=== PATIENT | male | born 1960 | race Caucasian/White ===

== ENCOUNTER 2017-12-31 09:03 | Day surgery (SDC) | payer BC ==
[2017-12-28 08:34] VITALS: BMI 25.0
[~2017-12-31 09:03] MED LIST: LACTATED RINGERS 1,000 ML IV SCH; LIDOCAINE 1% 20 ML VIAL (10MG/ML) FOR IV START INTRADERMA PRN
[2017-12-31 10:19] VITALS: RESP 18; TEMP 97.8
[2017-12-31] MEDS ORDERED: LACTATED RINGERS 1,000 ML IV ONE (10:27)
[2017-12-31] MEDS ORDERED: PROPOFOL 10 MG/ML 20 ML VIAL IV ONE (10:30)
[2017-12-31 10:32] LABS: Glucose,Whole Blood 79 mg/dL (75-99)
--- NOTE | 2017-12-31 10:57 | P.PCN ---
Date of Procedure: 12/31/17 Procedure(s) Performed: Procedure: Total colonoscopy. Preoperative diagnosis: Screening for neoplasia. Preoperative diagnosis: Exam within normal limits. Preparation: HalfLytely prep. Sedation: Was provided by anesthesia. Brief clinical history: The patient is a 57-year-old male who is referred for this evaluation for screening for neoplasia. There is no family history of colon cancer. The patient has no abdominal complaints, bleeding or anemia. His first colonoscopy was more than 10 years ago. Procedure: With the patient on his left lateral decubitus position and after informed consent and adequate sedation, the perianal area was inspected and it did not show any fissures or fistulas. There were no masses felt on digital rectal examination. The Olympus CFQ 160L video colonoscope was then inserted in the rectum in the usual fashion and advanced to the cecum. The mucosa appeared healthy. No polyps or tumors were seen or any obvious diverticular disease or other pathology. I retroflexed the endoscope in the rectum before the endoscope was withdrawn. The patient tolerated the procedure well. Plan: The patient was reassured. He will follow up with you as planned and I recommended repeat exam in 10 years.
[2017-12-31 11:34] VITALS: BP 100/63; PULSE 56
== END 2017-12-31 11:46 | disposition home or self-care (01) ==
LOC: ORWHC2ENDO 09:03
DX: Z12.11 Encounter for screening for malignant neoplasm of colon (principal); I25.10 Atherosclerotic heart disease of native coronary artery without angina pectoris; J44.9 Chronic obstructive pulmonary disease, unspecified; I10 Essential (primary) hypertension; E78.5 Hyperlipidemia, unspecified; E88.01 Alpha-1-antitrypsin deficiency; Z95.5 Presence of coronary angioplasty implant and graft; Z79.82 Long term (current) use of aspirin; Z79.51 Long term (current) use of inhaled steroids; Z79.899 Other long term (current) drug therapy
CPT/HCPCS: J2704; G0121; 45378

== ENCOUNTER 2019-08-24 20:14 | Inpatient (IN) | payer BC, MEDICARE ==
[2019-08-24] MEDS ORDERED: ALBUTEROL NEBULIZED 2.5 MG/3 ML INHALATION STA (20:29)
[2019-08-24] MEDS ORDERED: IPRATROPIUM 0.5 MG/2.5 ML NEBU INHALATION STA (20:29)
[2019-08-24] MEDS ORDERED: methylPREDNISolone SOD SUCCI 125 MG/2 ML VIAL IV STA (20:29)
--- NOTE | 2019-08-24 20:44 | ED ---
General Adult HPI - General Chief complaint: Shortness of Breath Stated complaint: SOB Time Seen by Provider: 08/24/19 20:15 Source: patient, family, RN notes reviewed, old records reviewed Mode of arrival: ambulatory Limitations: no limitations - History of Present Illness Initial comments: This is a 59-year-old male who presents emergency Department complaining of difficulty breathing. Patient has a past medical history significant for COPD. Patient states he took some breathing treatments at home today but they did not help. Patient stated his breathing got considerably worse. Patient also has noticed some slight chest pressure today. Patient states he has a history of heart attack with stent placement. Patient states this is nowhere near the kind of pain he had his chest when his heart attack. Patient denies any fever or chills. Patient states he doesn't cough but no sputum production. Patient denies any lightheadedness or dizziness. Patient denies any headache patient denies numbness weakness. Patient denies any abdominal pain. Patient denies nausea vomiting. She denies any swelling to the legs or calf tenderness. - Related Data Home Medications Medication Instructions Recorded Confirmed Aspirin [Adult Low Dose Aspirin EC] 81 mg PO DAILY 12/28/17 07/26/18 Atorvastatin [Lipitor] 80 mg PO DAILY 12/28/17 07/26/18 Fluticasone/Salmeterol [Advair 1 each IH DAILY 12/28/17 07/26/18 500-50 Diskus] Ipratropium-Albuterol Nebulize 3 ml INHALATION QID 12/28/17 07/26/18 [Duoneb 0.5 mg-3 mg/3 ml Soln] Ipratropium/Albuterol Sulfate 1 - 2 puff INHALATION QID PRN 12/28/17 07/26/18 [Combivent Respimat Inhaler] Lisinopril [Zestril] 5 mg PO DAILY 12/28/17 07/26/18 Theophylline 12 Hour [Dae-Dur] 300 mg PO DAILY 12/28/17 07/26/18 predniSONE 2.5 mg PO DAILY 12/28/17 07/26/18 Allergies Allergy/AdvReac Type Severity Reaction Status Date / Time No Known Allergies Allergy Verified 08/24/19 20:19 Review of Systems ROS Statement: Those systems with pertinent positive or pertinent negative responses have been documented in the HPI. ROS Other: All systems not noted in ROS Statement are negative. Past Medical History Past Medical History: Coronary Artery Disease (CAD), COPD, Hypertension, Myocardial Infarction ([place]) Additional Past Medical History / Comment(s): alpha 1 deficiency Last Myocardial Infarction Date:: 2008 History of Any Multi-Drug Resistant Organisms: None Reported Past Surgical History: Heart Catheterization With Stent Additional Past Surgical History / Comment(s): COLONOSCOPY Past Anesthesia/Blood Transfusion Reactions: No Reported Reaction Date of Last Stent Placement:: 2008 Past Psychological History: No Psychological Hx Reported Smoking Status: Former smoker Past Alcohol Use History: None Reported Past Drug Use History: None Reported - Past Family History Mother Family Medical History: No Reported History General Exam - General Exam Comments Initial Comments: GENERAL: Patient is well-developed and well-nourished. Patient is nontoxic and well- hydrated and is in mild distress. ENT: Neck is soft and supple. No significant lymphadenopathy is noted. Oropharynx is clear. Moist mucous membranes. Neck has full range of motion without eliciting any pain. EYES: The sclera were anicteric and conjunctiva were pink and moist. Extraocular movements were intact and pupils were equal round and reactive to light. Eyelids were unremarkable. PULMONARY: Patient has diminished breath sounds throughout and expiratory wheezing. CARDIOVASCULAR: There is a regular rate and rhythm without any murmurs gallops or rubs. ABDOMEN: Soft and nontender with normal bowel sounds. SKIN: Skin is clear with no lesions or rashes and otherwise unremarkable. NEUROLOGIC: Patient is alert and oriented x3. Cranial nerves II through XII are grossly intact. Motor and sensory are also intact. Normal speech, volume and content. Symmetrical smile. MUSCULOSKELETAL: Normal extremities with adequate strength and full range of motion. LYMPHATICS: No significant lymphadenopathy is noted PSYCHIATRIC: Normal psychiatric evaluation. Limitations: no limitations Course Vital Signs 08/24/19 08/24/19 08/24/19 20:16 20:45 20:54 Temperature 98.2 F Pulse Rate 85 86 Respiratory 32 H 26 H Rate Blood Pressure 135/82 O2 Sat by Pulse 94 L Oximetry 08/24/19 08/24/19 21:15 21:34 Temperature Pulse Rate 82 80 Respiratory Rate Blood Pressure O2 Sat by Pulse Oximetry Medical Decision Making - Medical Decision Making EKG shows sinus rhythm with occasional PVC at 77 bpm WA interval is on a 34 King 96 QT interval 352 QTC is 398. Patient's EKG shows no ST segment elevation or depression. Chest x-ray shows no acute abnormality. Patient got 3 breathing treatments in the emergency department as well as some steroids. I went back in and reevaluated the patient he sounded considerably better but nowhere near his baseline he stated. I spoke with Dr. Dominguez he agreed to admit the patient admitted the patient I wrot e admitting orders. - Lab Data Result diagrams: 08/24/19 20:45 08/24/19 20:45 Lab Results 08/24/19 08/24/19 08/24/19 Range/Units 20:45 20:45 20:45 WBC 7.2 (3.8-10.6) k/uL RBC 4.66 (4.30-5.90) m/uL Hgb 13.7 (13.0-17.5) gm/dL Hct 41.6 (39.0-53.0) % MCV 89.2 (80.0-100.0) fL MCH 29.3 (25.0-35.0) pg MCHC 32.8 (31.0-37.0) g/dL RDW 13.7 (11.5-15.5) % Plt Count 268 (150-450) k/uL Neutrophils % 62 % Lymphocytes % 27 % Monocytes % 5 % Eosinophils % 2 % Basophils % 1 % Neutrophils # 4.5 (1.3-7.7) k/uL Lymphocytes # 2.0 (1.0-4.8) k/uL Monocytes # 0.4 (0-1.0) k/uL Eosinophils # 0.2 (0-0.7) k/uL Basophils # 0.0 (0-0.2) k/uL PT 9.8 (9.0-12.0) sec INR 0.9 (<1.2) APTT 23.8 (22.0-30.0) sec Sodium 139 (137-145) mmol/L Potassium 5.5 H (3.5-5.1) mmol/L Chloride 106 (98-107) mmol/L Carbon Dioxide 25 (22-30) mmol/L Anion Gap 8 mmol/L BUN 16 (9-20) mg/dL Creatinine 1.03 (0.66-1.25) mg/dL Est GFR (CKD-EPI)AfAm >90 (>60 ml/min/1.73 sqM) Est GFR (CKD-EPI)NonAf 78 (>60 ml/min/1.73 sqM) Glucose 90 (74-99) mg/dL Calcium 8.9 (8.4-10.2) mg/dL Magnesium 2.1 (1.6-2.3) mg/dL Total Bilirubin 1.0 (0.2-1.3) mg/dL AST 42 (17-59) U/L ALT 16 L (21-72) U/L Alkaline Phosphatase 89 (38-126) U/L Troponin I (0.000-0.034) ng/mL Total Protein 7.3 (6.3-8.2) g/dL Albumin 4.1 (3.5-5.0) g/dL 08/24/19 Range/Units 20:45 WBC (3.8-10.6) k/uL RBC (4.30-5.90) m/uL Hgb (13.0-17.5) gm/dL Hct (39.0-53.0) % MCV (80.0-100.0) fL MCH (25.0-35.0) pg MCHC (31.0-37.0) g/dL RDW (11.5-15.5) % Plt Count (150-450) k/uL Neutrophils % % Lymphocytes % % Monocytes % % Eosinophils % % Basophils % % Neutrophils # (1.3-7.7) k/uL Lymphocytes # (1.0-4.8) k/uL Monocytes # (0-1.0) k/uL Eosinophils # (0-0.7) k/uL Basophils # (0-0.2) k/uL PT (9.0-12.0) sec INR (<1.2) APTT (22.0-30.0) sec Sodium (137-145) mmol/L Potassium (3.5-5.1) mmol/L Chloride (98-107) mmol/L Carbon Dioxide (22-30) mmol/L Anion Gap mmol/L BUN (9-20) mg/dL Creatinine (0.66-1.25) mg/dL Est GFR (CKD-EPI)AfAm (>60 ml/min/1.73 sqM) Est GFR (CKD-EPI)NonAf (>60 ml/min/1.73 sqM) Glucose (74-99) mg/dL Calcium (8.4-10.2) mg/dL Magnesium (1.6-2.3) mg/dL Total Bilirubin (0.2-1.3) mg/dL AST (17-59) U/L ALT (21-72) U/L Alkaline Phosphatase (38-126) U/L Troponin I <0.012 (0.000-0.034) ng/mL Total Protein (6.3-8.2) g/dL Albumin (3.5-5.0) g/dL Critical Care Time Critical Care Time: Yes Total Critical Care Time: 35 Disposition Clinical Impression: Acute exacerbation of chronic obstructive pulmonary disease Disposition: ADMITTED IP TO THIS HOSP Referrals: Everett Lara DO [Primary Care Provider] - 1-2 days Time of Disposition: 22:07
[2019-08-24 21:00] LABS: Basophils % (A) 1 %; Eosinophils # (A) 0.2 k/uL (0-0.7); Eosinophils % (A) 2 %; HCT 41.6 % (39.0-53.0); HGB 13.7 gm/dL (13.0-17.5); Lymphocytes % (A) 27 %; MCH 29.3 pg (25.0-35.0); MCHC 32.8 g/dL (31.0-37.0); MCV 89.2 fL (80.0-100.0); Mean Platelet Volume 6.4; Monocytes # (A) 0.4 k/uL (0-1.0); Monocytes % (A) 5 %; Neutrophils # (A) 4.5 k/uL (1.3-7.7); Neutrophils % (A) 62 %; Platelet Count 268 k/uL (150-450); RBC 4.66 m/uL (4.30-5.90); RDW 13.7 % (11.5-15.5); WBC 7.2 k/uL (3.8-10.6)
[2019-08-24 21:04] LABS: ALT 16 U/L (21-72); AST 42 U/L (17-59); African American GFR (CKD) >90 (>60 ml/min/1.73 sqM); Albumin 4.1 g/dL (3.5-5.0); Alkaline Phosphatase 89 U/L (38-126); Anion Gap 8 mmol/L; Blood Urea Nitrogen 16 mg/dL (9-20); Calcium 8.9 mg/dL (8.4-10.2); Carbon Dioxide 25 mmol/L (22-30); Chloride 106 mmol/L (98-107); Glucose 90 mg/dL (74-99); Magnesium 2.1 mg/dL (1.6-2.3); Non-African American GFR(CKD) 78 (>60 ml/min/1.73 sqM); Sodium 139 mmol/L (137-145); Total Protein 7.3 g/dL (6.3-8.2)
[2019-08-24 21:06] LABS: Potassium 5.5 mmol/L (3.5-5.1)
[2019-08-24 21:14] LABS: INR 0.9 (<1.2); Partial Thromboplastin Time 23.8 sec (22.0-30.0); Prothrombin Time 9.8 sec (9.0-12.0)
[2019-08-24] MEDS ORDERED: IPRATROPIUM-ALBUTEROL 3 ML NEB INHALATION PRN (21:22)
--- NOTE | 2019-08-24 21:45 | XR ---
EXAMINATION TYPE: XR chest 2V DATE OF EXAM: 08/24/2019 COMPARISON: Chest x-ray 06/26/2019 HISTORY: Difficulty breathing TECHNIQUE: Frontal and lateral views of the chest are obtained. FINDINGS: Stable, nonenlarged cardiac silhouette. Rounded right lower lung opacity is new from Octob er 2019 and may represent overlapping soft tissues. No focal airspace consolidation. Prominent inters titial markings, likely from emphysematous change. No pleural effusion or pneumothorax. Old, healed r ight-sided rib fracture redemonstrated. IMPRESSION: No acute cardiopulmonary process.
[2019-08-24] MEDS ORDERED: LEVOFLOXACIN 750MG-D5W PMX 750 MG in DEXTROSE/WATER 1 150ML.BAG IVPB STA (22:11)
[2019-08-25] MEDS: methylPREDNISolone SOD SUCCI 125 MG/2 ML VIAL IV SCH ×3 (00:04→14:33)
[2019-08-25] MEDS: IPRATROPIUM-ALBUTEROL 3 ML NEB INHALATION PRN ×5 (04:27→19:33)
[2019-08-25 08:40] VITALS: RESP 18
[2019-08-25 12:42] LABS: Glucose,Whole Blood 204 mg/dL (75-99)
--- NOTE | 2019-08-25 15:38 | P.HPIM ---
History of Present Illness Patient is a pleasant 59-year-old gentleman with a history of smoking quit years ago and alpha 1 antitrypsin Deficiency Known History of COPD Doesn't Use Any Oxygen Came in with Compensative Shortness of Breath and Cough Has Been Going on for 3 Days If Patient Is Unable to Bring up Anything Patient Chest X-Ray Did Not Show Pneumonia Patient Doesn't Have Any Fever Chills. Patient was started on systemic steroids which will be continued and patient shortness of breath significantly improved with steroids episode and inhalational treatments received in ER. We'll cut down the steroids to 40 twice a day and if he is doing well patient will be discharged tomorrow. Patient is presently in status of oxygen which we will taper down to no oxygen by tomorrow. Patient denied any flulike symptoms. Review of Systems REVIEW OF SYSTEMS: CONSTITUTIONAL: No fever, no malaise, no fatigue. HEENT: No recent visual problems or hearing problems. Denied any sore throat. CARDIOVASCULAR: No chest pain, orthopnea, PND, no palpitations, no syncope. PULMONARY: no hemoptysis. GASTROINTESTINAL: No diarrhea, no nausea, no vomiting, no abdominal pain. NEUROLOGICAL: No headaches, no weakness, no numbness. HEMATOLOGICAL: Denies any bleeding or petechiae. GENITOURINARY: Denies any burning micturition, frequency, or urgency. MUSCULOSKELETAL/RHEUMATOLOGICAL: Denies any joint pain, swelling, or any muscle pain. ENDOCRINE: Denies any polyuria or polydipsia. The rest of the 14-point review of systems is negative. Past Medical History Past Medical History: Asthma, Coronary Artery Disease (CAD), COPD, GERD/Reflux, Hyperlipidemia, Hypertension, Myocardial Infarction ([place]), Prostate Disorder Additional Past Medical History / Comment(s): Alpha 1 deficiency with weekly infusions, bronchitis, BPH, N/T R hand, tendonitis R arm, mid back pain associated with increased respiratory effort. Last Myocardial Infarction Date:: 2010 History of Any Multi-Drug Resistant Organisms: None Reported Past Surgical History: Heart Catheterization With Stent Additional Past Surgical History / Comment(s): 2 stents to RCA in 2010, COLONOSCOPY Past Anesthesia/Blood Transfusion Reactions: No Reported Reaction Date of Last Stent Placement:: 2010 Smoking Status: Former smoker - Past Family History Mother Family Medical History: Pneumonia Additional Family Medical History / Comment(s): Mother of pneumonia at the age of 56 or 57yrs. Father Family Medical History: Coronary Artery Disease (CAD) Additional Family Medical History / Comment(s): Father was an alcoholic. He at the age of 58yrs. Medications and Allergies Home Medications Medication Instructions Recorded Confirmed Type Aspirin [Adult Low Dose Aspirin EC] 81 mg PO DAILY 12/28/17 08/25/19 History Atorvastatin [Lipitor] 80 mg PO DAILY 12/28/17 08/25/19 History Fluticasone/Salmeterol [Advair 1 puff INHALATION RT-DAILY 12/28/17 08/25/19 History 500-50 Diskus] Ipratropium-Albuterol Nebulize 3 ml INHALATION RT-QID 12/28/17 08/25/19 History [Duoneb 0.5 mg-3 mg/3 ml Soln] Ipratropium/Albuterol Sulfate 1 puff INHALATION RT-QID PRN 12/28/17 08/25/19 History [Combivent Respimat Inhaler] Theophylline 12 Hour [Dae-Dur] 300 mg PO DAILY 12/28/17 08/25/19 History predniSONE 2.5 mg PO DAILY 12/28/17 08/25/19 History Lisinopril [Zestril] 2.5 mg PO DAILY 08/25/19 08/25/19 History Allergies Allergy/AdvReac Type Severity Reaction Status Date / Time No Known Allergies Allergy Verified 08/25/19 07:43 Physical Exam Vitals: Vital Signs Temp Pulse Pulse Resp BP BP Pulse Ox 08/25/19 15:21 70 08/25/19 15:08 77 97 08/25/19 14:29 97.9 F 63 18 116/76 98 08/25/19 12:50 67 08/25/19 12:35 66 08/25/19 08:00 97.6 F 84 18 99/64 97 08/25/19 07:51 61 08/25/19 07:41 67 08/25/19 04:38 100 08/25/19 04:29 98 08/25/19 04:28 99.1 F 100 20 100/77 97 08/25/19 01:00 95 22 122/88 97 08/24/19 21:34 80 08/24/19 21:15 82 08/24/19 20:54 26 H 08/24/19 20:45 86 08/24/19 20:16 98.2 F 85 32 H 135/82 94 L Intake and Output 08/25/19 08/25/19 08/25/19 06:59 14:59 22:59 Other: # Voids 2 Weight 80.286 kg PHYSICAL EXAMINATION: GENERAL: The patient is alert and oriented x3, not in any acute distress. Well developed, well nourished. HEENT: Pupils are round and equally reacting to light. EOMI. No scleral icterus. No conjunctival pallor. Normocephalic, atraumatic. No pharyngeal erythema. No thyromegaly. CARDIOVASCULAR: S1 and S2 present. No murmurs, rubs, or gallops. PULMONARY: Mildly decreased air entry into bilateral lung moreau no wheezing or crackles. ABDOMEN: Soft, nontender, nondistended, normoactive bowel sounds. No palpable organomegaly. MUSCULOSKELETAL: No joint swelling or deformity. EXTREMITIES: No cyanosis, clubbing, or pedal edema. NEUROLOGICAL: Gross neurological examination did not reveal any focal deficits. SKIN: No rashes. Results CBC & Chem 7: 08/24/19 20:45 08/24/19 20:45 Labs: Abnormal Lab Results - Last 24 Hours (Table) 08/24/19 08/25/19 Range/Units 20:45 12:40 Potassium 5.5 H (3.5-5.1) mmol/L POC Glucose (mg/dL) 204 H (75-99) mg/dL ALT 16 L (21-72) U/L Thrombosis Risk Factor Assmnt - Choose All That Apply Any of the Below Risk Factors Present?: Yes Each Factor Represents 1 point: Abnormal pulmonary function (COPD) Other Risk Factors: Yes Each Risk Factor Represents 2 Points: Age 61-74 years Other congenital or acquired thrombophilia - If yes, enter type in comment: No Thrombosis Risk Factor Assessment Total Risk Factor Score: 3 Thrombosis Risk Factor Assessment Level: Moderate Risk Assessment and Plan Plan: -Acute hypercapnic respiratory failure secondary to COPD exacerbation continue systemic steroids inhalational treatments pulmonary was consulted patient does have history of alpha 1 antitrypsin deficiency. The patient is clinically doing well probably can be discharged tomorrow -Hyperkalemia: Secondary to hemolysis although patient did blood pressure is low normal because of which I'll hold off on lisinopril anyway. We'll repeat potassium levels tomorrow -Gastric reflux disease -Hyperlipidemia -Coronary artery disease -Benign prostatic appropriate -Hypertension For all the above-mentioned chronic medical problems patient will be resumed on appropriate home medications. -DVT prophylaxis early ambulation GI prophylaxis Pepcid
--- NOTE | 2019-08-25 17:22 | CONS ---
CONSULTATION PULMONARY/CRITICAL CARE CONSULTATION: DATE OF CONSULTATION: August 25, 2019 REASON FOR CONSULTATION: Shortness of breath. HISTORY OF PRESENT ILLNESS: This is a very pleasant 59-year-old male who I believe sees Dr. Lara as a primary and sees my partner Dr. Ardon for his COPD. He presents to the emergency room with complaints of a couple days worth of increasing and profound shortness of breath. The patient was taking his breathing treatments, which did not help. He felt very tight in his chest and could not get a breath in. He also had some slight chest pressure. For that reason, the patient was seen in the emergency room and admitted to the hospital. We actually saw the patient in the emergency room because there was no bed available for him. He was in the observation area in the emergency room. The patient denied any fever or chills. Does not cough up much or any phlegm. No lightheadedness or dizziness. No fever or chills. No nausea, vomiting or diarrhea. No genitourinary complaints. The patient does apparently have a history of alpha 1 antitrypsin deficiency, emphysema and is currently on replacement therapy with Prolastin. Again, his technology intern is Dr. Ardon. The patient is feeling better. He has been in the hospital for less than a day. He states his breathing is improved somewhat. CURRENT MEDICATIONS: Include aspirin, Lipitor, Advair, DuoNeb, Combivent, lisinopril, theophylline, prednisone and replacement therapy for his alpha-1 disease, Prolastin. ALLERGIES: Denied. MEDICAL HISTORY: CAD, COPD, hypertension, myocardial infarction, and alpha-1 antitrypsin deficiency. His last [place] was in 2008. SURGICAL HISTORY: Includes a previous heart catheterization with stent and as well a colonoscopy. SOCIAL HISTORY: Negative for tobacco or alcohol. He is a former smoker. He did smoke heavily for a number of years. FAMILY HISTORY: Positive for a mother who is healthy and a father whose health history he does not know. REVIEW OF SYSTEMS: CONSTITUTIONAL negative. NEUROLOGIC negative. HEENT negative. CARDIOVASCULAR: Chest tightness. PULMONARY: Shortness of breath, chest tightness, wheezing, cough without phlegm production. GI negative. negative. RHEUMATOLOGIC negative. IMMUNOLOGIC negative. ENDOCRINOLOGIC negative. DERMATOLOGIC negative. PHYSICAL EXAMINATION: VITAL SIGNS: Current vital signs are reviewed. Temperature 97.6. Heart rate 67, respiratory rate 18, blood pressure 99/64, mean 75 and 3 L saturation 97%. GENERAL: Appears in no acute distress. HEENT examination is grossly unremarkable. He does have nasal O2 in place. NECK: Supple. Full range of motion. No adenopathy or thyromegaly. Neck veins are flat. CARDIOVASCULAR examination reveals regular rhythm and rate. S1, S2 normal. No S3, S4, or murmur. LUNGS: Reveal severely diminished breath sounds. Some high-pitched expiratory wheezes are noted. There is prolongation on forced maneuver. ABDOMEN: Soft. Bowel sounds are heard. EXTREMITIES are intact. No cyanosis, clubbing, or edema. SKIN: Without rash. NEUROLOGIC: Examination is brief but nonfocal. CURRENT LAB DATA: Reviewed. White count 7.2, hemoglobin 13.7, hematocrit 41.6, platelet count 268,000. PT/INR and PTT all normal. Sodium 139, potassium 5.5, chloride 106, CO2 is 25, anion gap is 8. BUN and creatinine were 16 and 1.03. ALT was 16. Microbiology is pending or negative. X-RAY: Chest x-ray shows no acute cardiopulmonary disease. It does show evidence of changes of COPD. Medications are reviewed. ASSESSMENT: 1. Chronic obstructive pulmonary disease exacerbation, in a patient with a history of alpha-1 antitrypsin deficiency. 2. No evidence of pneumonia on chest x-ray. 3. History of hyperlipidemia. 4. Coronary artery disease. 5. Hypertension by history. 6. Prior history of myocardial infarction 2008. 7. History of previous PCI with stent placement. 8. Prior history of tobacco use. PLAN: His chest x-ray, medications and labs are all being reviewed. He is already starting to feel better. We will make sure he is on appropriate medications. Probably just an oral antibiotics is all that is required. Additional recommendations and suggestions are forthcoming. Prognosis is guarded. MMODL / IJN: [id number] /
[2019-08-25] MEDS: SYMBICORT 160-4.5 MCG INHALER INHALATION SCH (19:34)
[2019-08-25] MEDS: methylPREDNISolone SOD SUCCI 40 MG/ML 1 ML VIAL IV SCH (20:43)
[2019-08-25] MEDS: FAMOTIDINE 20 MG TAB PO SCH (20:43)
[2019-08-25] MEDS ORDERED: LEVOFLOXACIN 750 MG TAB PO SCH (22:00)
[2019-08-25] MEDS ORDERED: LEVOFLOXACIN 750MG-D5W PMX 750 MG in DEXTROSE/WATER 1 150ML.BAG IVPB SCH (22:15)
[2019-08-26 05:01] VITALS: BP 112/70; TEMP 97.8
[2019-08-26] MEDS: IPRATROPIUM-ALBUTEROL 3 ML NEB INHALATION PRN ×2 (07:17→11:15)
[2019-08-26] MEDS: SYMBICORT 160-4.5 MCG INHALER INHALATION SCH (07:17)
[2019-08-26] MEDS: methylPREDNISolone SOD SUCCI 40 MG/ML 1 ML VIAL IV SCH (08:35)
[2019-08-26] MEDS: FAMOTIDINE 20 MG TAB PO SCH (08:35)
[2019-08-26] MEDS ORDERED: THEOPHYLLINE 24 HOUR 300 MG CAP.ER.24H PO SCH (09:00)
[2019-08-26] MEDS ORDERED: ASPIRIN 81 MG PO SCH (09:00)
[2019-08-26] MEDS ORDERED: ATORVASTATIN 80 MG TAB PO SCH (09:00)
[2019-08-26 11:28] VITALS: PULSE 84
[2019-08-26 11:47] LABS: African American GFR (CKD) >90 (>60 ml/min/1.73 sqM); Anion Gap 10 mmol/L; Blood Urea Nitrogen 24 mg/dL (9-20); Calcium 9.7 mg/dL (8.4-10.2); Carbon Dioxide 27 mmol/L (22-30); Chloride 103 mmol/L (98-107); Glucose 139 mg/dL (74-99); Non-African American GFR(CKD) 84 (>60 ml/min/1.73 sqM); Potassium 5.1 mmol/L (3.5-5.1); Sodium 140 mmol/L (137-145)
--- NOTE | 2019-08-26 13:12 | P.PN ---
Subjective Progress Note Date: 08/26/19 Principal diagnosis: Exacerbation of COPD, alpha-1 antitrypsin deficiency On 08/26/2019 patient seen in follow-up. Awake and alert, in no acute distress doing better, breathing easier, lung sounds reveal good air entry bilaterally, with only minimal wheezes, signs have been stable, no fever or chills, room air pulse ox is 94%, patient has been treated with the IV steroids, nebulized bronchodilators, and oral antibiotics. Doing well, and being considered for discharge home today. Objective - Vital Signs Vital signs: Vital Signs Temp 97.8 F 08/26/19 05:01 Pulse 84 08/26/19 11:28 Resp 18 08/26/19 05:01 BP 112/70 08/26/19 05:01 Pulse Ox 94 L 08/26/19 07:20 Intake & Output 08/25/19 08/26/19 08/26/19 18:59 06:59 18:59 Intake Total 480 900 400 Balance 480 900 400 Weight 80.286 kg Intake: Oral 480 900 400 Other: # Voids 2 2 2 # Bowel Movements 0 0 - Exam GENERAL EXAM: Alert, very pleasant, 59-year-old white male, room air pulse ox 94% comfortable in no apparent distress. HEAD: Normocephalic/atraumatic. EYES: Normal reaction of pupils, equal size. Conjunctiva pink, sclera white. NOSE: Clear with pink turbinates. THROAT: No erythema or exudates. NECK: No masses, no JVD, no thyroid enlargement, no adenopathy. CHEST: No chest wall deformity. Symmetrical expansion. LUNGS: Equal air entry with minimal wheezes, but no rhonchi or dullness. CVS: Regular rate and rhythm, normal S1 and S2, no gallops, no murmurs, no rubs ABDOMEN: Soft, nontender. No hepatosplenomegaly, normal bowel sounds, no guarding or rigidity. EXTREMITIES: No clubbing, no edema, no cyanosis, 2+ pulses and upper and lower extremities. MUSCULOSKELETAL: Muscle strength and tone normal. SPINE: No scoliosis or deformity SKIN: No rashes CENTRAL NERVOUS SYSTEM: Alert and oriented -3. No focal deficits, tone is normal in all 4 extremities. PSYCHIATRIC: Alert and oriented -3. Appropriate affect. Intact judgment and insight. - Labs CBC & Chem 7: 08/24/19 20:45 08/26/19 10:43 Labs: Abnormal Lab Results - Last 24 Hours (Table) 08/26/19 Range/Units 10:43 BUN 24 H (9-20) mg/dL Glucose 139 H (74-99) mg/dL Microbiology - Last 24 Hours (Table) 08/24/19 22:25 Blood Culture - Preliminary Blood No Growth after 24 hours Assessment and Plan Plan: Assessment: #1. Acute exacerbation of chronic obstructive pulmonary disease, with a history of alpha-1 antitrypsin deficiency #2. No definite evidence of pneumonia on the chest x-ray #3. History of hyperlipidemia #4. Coronary artery disease with previous PCI and stenting #5. Hypertension #6. History of myocardial infarction 2008 #7. Prior history of tobacco use Plan: Patient is doing well, breathing easier, less dyspneic and this bronchospastic, vital signs are stable, he is responded well to inpatient treatments, no acute events overnight, he is tolerating ambulation, patient is being discharged home today, follow-up with Dr. Phan in the office in one to 2 weeks. I performed a history & physical examination of the patient and discussed their management with my nurse practitioner, Liset Romero. I reviewed the nurse practitioner's note and agree with the documented findings and plan of care. Lung sounds are positive for a few scattered wheezes. The findings and the impression was discussed with the patient. I attest to the documentation by the nurse practitioner. Time with Patient: Less than 30
--- NOTE | 2019-08-27 06:08 | DS ---
DISCHARGE SUMMARY DATE OF ADMISSION: 08/24/2019 DATE OF DISCHARGE: 08/26/2019 FINAL DIAGNOSES: 1. Acute chronic obstructive pulmonary disease exacerbation in a patient with known history of alpha-1 antitrypsin deficiency. 2. Coronary artery disease with stent. 3. Gastroesophageal reflux disease. 4. Hyperlipidemia. 5. Essential hypertension. 6. Benign prostatic hypertrophy. CONSULTATION: Dr. Phan from Pulmonary. HOSPITAL COURSE: This is a patient with alpha-1 antitrypsin deficiency, who gets weekly injections, presented with COPD exacerbation, responded well to bronchodilators, steroids. Much improved by the time of discharge. PHYSICAL EXAMINATION: On examination, temperature 97.8, pulse 91, respiratory 18, blood pressure 112/70, pulse ox 94% on room air. LUNGS: Decreased breath sounds. CARDIOVASCULAR: First and second sounds normal. INVESTIGATIONS: Creatinine 0.98, potassium 5.1. DISCHARGE MEDICATIONS: 1. Aspirin 81 mg a day. 2. Lipitor 80 mg a day. 3. Advair 500/50 one puff daily. 4. DuoNeb q.i.d. 5. Combivent p.r.n. 6. Theophylline 300 mg p.o. daily. 7. Prednisone taper and maintenance dose of 2.5 mg daily. 8. Levaquin 750 mg daily for 3 tablets. Follow up with Dr. Ardon on 09/18/2019, follow up with Dr. Lara on 09/16/2019. MMMELLYL / IJN: [id number] /
== END 2019-08-26 12:00 | disposition home or self-care (01) | DRG 190 ==
LOC: EC 20:14 → 3SCARD 22:09 → 4MS4W 08-25 11:38
PROVIDERS: ADMIT Hospitalist; ATTEND Hospitalist
DX: J44.1 Chronic obstructive pulmonary disease with (acute) exacerbation (principal); J96.02 Acute respiratory failure with hypercapnia; E88.01 Alpha-1-antitrypsin deficiency; E87.5 Hyperkalemia; I10 Essential (primary) hypertension; E78.5 Hyperlipidemia, unspecified; I25.10 Atherosclerotic heart disease of native coronary artery without angina pectoris; I25.2 Old myocardial infarction; I49.3 Ventricular premature depolarization; K21.9 Gastro-esophageal reflux disease without esophagitis; N40.0 Benign prostatic hyperplasia without lower urinary tract symptoms; Z95.5 Presence of coronary angioplasty implant and graft; Z79.82 Long term (current) use of aspirin; Z79.899 Other long term (current) drug therapy; Z79.52 Long term (current) use of systemic steroids; Z87.891 Personal history of nicotine dependence; Z81.1 Family history of alcohol abuse and dependence; Z82.49 Family history of ischemic heart disease and other diseases of the circulatory system
CPT/HCPCS: 36415; 71046; 80048; 80053; 83735; 84484; 85025; 85610; 85730; 87040; 93005; 94640; 94644; 94760; 96365; 96366; 96375; 96376; 99291

== ENCOUNTER 2023-05-03 05:48 | Day surgery (SDC) | payer BC, MEDICARE ==
[2023-05-03] MEDS ORDERED: ALPRAZolam 0.5 MG TAB PO PRN (05:57)
[2023-05-03] MEDS ORDERED: ALPRAZolam 0.25 MG TAB PO PRN (05:57)
[2023-05-03] MEDS ORDERED: NITROGLYCERIN SL TABS 0.4 MG TAB SUBLINGUAL PRN (05:57)
[2023-05-03] MEDS ORDERED: HEPARIN SODIUM,PORCINE (1 ML) 2,500 UNIT in SODIUM CHLORIDE 0.9% 250 ML IRRIGATION PRN (05:57)
[2023-05-03] MEDS ORDERED: SODIUM CHLORIDE 0.9% 1,000 ML in EMPTY BAG 1 BAG IV SCH (05:57)
[2023-05-03] MEDS ORDERED: SODIUM CHLORIDE 0.9% 1,000 ML IV ONE (06:07)
[2023-05-03 06:26] VITALS: RESP 18; TEMP 97.8
[2023-05-03 06:40] LABS: Basophils # (A) 0.1 k/uL (0-0.2); Basophils % (A) 1 %; Eosinophils # (A) 0.4 k/uL (0-0.7); Eosinophils % (A) 4 %; Lymphocytes # (A) 3.3 k/uL (1.0-4.8); Lymphocytes % (A) 29 %; MCHC 31.9 g/dL (31.0-37.0); MCV 90.9 fL (80.0-100.0); Mean Platelet Volume 7.2; Monocytes # (A) 0.6 k/uL (0-1.0); Monocytes % (A) 6 %; Neutrophils # (A) 6.5 k/uL (1.3-7.7); Neutrophils % (A) 59 %; Platelet Count 335 k/uL (150-450); RBC 5.17 m/uL (4.30-5.90); RDW 13.8 % (11.5-15.5)
[2023-05-03 06:47] LABS: African American GFR (CKD) 83 (>60 ml/min/1.73 sqM); Anion Gap 8 mmol/L; Blood Urea Nitrogen 17 mg/dL (9-20); Calcium 9.5 mg/dL (8.4-10.2); Carbon Dioxide 26 mmol/L (22-30); Chloride 105 mmol/L (98-107); Glucose 91 mg/dL (74-99); Non-African American GFR(CKD) 72 (>60 ml/min/1.73 sqM); Potassium 4.5 mmol/L (3.5-5.1); Sodium 139 mmol/L (137-145)
[2023-05-03] MEDS ORDERED: HEPARIN SODIUM,PORCINE 10,000 UNIT in SODIUM CHLORIDE 0.9% 1,000 ML IRRIGATION PRN (07:00)
[2023-05-03] MEDS ORDERED: ATORVASTATIN 80 MG TAB PO ONE (07:00)
[2023-05-03] MEDS ORDERED: ASPIRIN 325 MG TAB PO ONE (07:00)
[2023-05-03] MEDS ORDERED: VERAPAMIL 2.5 MG/ML 2 ML AMP ONE (07:15)
[2023-05-03] MEDS ORDERED: HEPARIN SODIUM 1,000 UN/ML (10ML VL) ONE (07:32)
[2023-05-03] MEDS ORDERED: fentaNYL (PF) 50 MCG/ML 2 ML AMP ONE (07:32)
[2023-05-03] MEDS ORDERED: fentaNYL (PF) 50 MCG/ML 2 ML AMP IVP ONE (07:39)
[2023-05-03] MEDS ORDERED: LIDOCAINE 1% INJ 10MG/ML (5 ML VIAL-PF) SQ ONE (07:46)
[2023-05-03] MEDS ORDERED: VERAPAMIL SYRINGE (5 MG/10 ML) INTRAARTER ONE (07:47)
[2023-05-03] MEDS ORDERED: HEPARIN SODIUM 1,000 UN/ML (10ML VL) IV ONE (07:51)
[2023-05-03] MEDS ORDERED: MIDAZOLAM 2 MG/2 ML VIAL IVP ONE (07:52)
[2023-05-03] MEDS ORDERED: IOPAMIDOL-370 100ML BTL INJ ONE (07:55)
[2023-05-03] MEDS ORDERED: RX INFO: IV CONTRAST WAS GIVEN 1 EACH MISC MISCELLANE PRN (08:07)
[2023-05-03] MEDS ORDERED: NON FORMULARY DRUG (Ipratropium/Albuterol Sulfate [Combivent Respimat Inhaler] 1 INHALER M INHALATION PRN (08:08)
--- NOTE | 2023-05-03 08:13 | P.CARDCATH ---
Date of Procedure: 05/03/23 Description of Procedure: Cardiac Catheterization: The patient is a 63-year-old male with a known history of hyperlipidemia, hypertension and prior history of CAD who presented with symptoms of exertional chest discomfort, reminding him of the way he felt prior to his PCI. Recommendations were made regarding cardiac catheterization, the risks and the complications were discussed with the patient who is in full understanding and agreement. Procedure Description: Patient was brought to ear mold laboratory technician in fasting semi-sedated state after receiving Fentanyl and Benadryl achieiving moderate conscious sedated state. Using Xylocaine Anesthesia and Seldinger technique, a 6-Portuguese sheath was introduced in the right radial artery . Subsequently, selective coronary angiography was performed using a 5-Portuguese 3.5 bend Winnie catheter. Multiple views of the coronary artery including hemiaxial views were obtained. The right Winnie catheter was used to cross the aortic valve and LVEDP was calculated. Following that, catheter and sheath were removed. Hemostasis was obtained with deployment of TR band . There was no immediate complication. Patient was returned to room in stable condition. Of note, the patient received a total of 4000 units of intravenous heparin as well as intra-arterial verapamil. Findings: Left main: This is a large size vessel, bifurcating into LAD and circumflex, left main has no obstructive disease LAD: This is a large size vessel, reaching to the apex, giving rise to a large d iagonal branch proximally, the proximal LAD has 20% plaque, the mid LAD has a 40% eccentric plaque with no progression compared to 1999 1018. The rest of the vessel has no high-grade stenosis. Left circumflex: This is a large nondominant vessel giving rise to a large obtuse marginal branch. The OM branch has a 20% plaque the rest of the vessel has no high-grade stenosis RCA: This is a large dominant vessel, bifurcating into PDA and PLV. The stented segment in the mid and distal RCA are patent with minimal in-stent restenosis. There is a 20-30% plaque between the stents with no high-grade stenosis. Left Ventriculogram: Not performed Hemodynamics: There was no gradient across the aortic valve, LVEDP was 10-13 mmHg Conclusion: 1. Mild triple vessel disease 2. Patent stents in the RCA 3. Right dominance 4. Normal LVEDP Recommendations: I see no evidence of significant progression of disease, I have recommended to continue medical regimen and depending on his progress further recommendations will be made. The findings and the recommendations were discussed with the patient and the family and they were in full understanding and agreement. Duration of sedation is 13 minutes.
[2023-05-03] MEDS ORDERED: SODIUM CHLORIDE 0.9% 1,000 ML IV SCH (08:15)
[2023-05-03] MEDS ORDERED: THEOPHYLLINE PO SCH (09:00)
[2023-05-03] MEDS ORDERED: NON FORMULARY DRUG (Aspirin [Adult Low Dose Aspirin Ec] 81 MG Tablet.Dr) PO SCH (09:00)
[2023-05-03] MEDS ORDERED: predniSONE 2.5 MG TAB PO SCH (09:00)
[2023-05-03] MEDS ORDERED: PROLASTIN IV SCH (09:00)
[2023-05-03] MEDS ORDERED: ISOSORBIDE MONONITRATE ER 30 MG TAB.ER.24H PO SCH (09:00)
[2023-05-03] MEDS ORDERED: ATORVASTATIN 80 MG TAB PO SCH (09:00)
[2023-05-03 11:49] VITALS: BP 115/72; PULSE 68
[2023-05-03] MEDS ORDERED: IPRATROPIUM-ALBUTEROL 3 ML NEB INHALATION SCH (12:00)
[2023-05-04] MEDS ORDERED: NON FORMULARY DRUG (Fluticasone Propion/Salmeterol [Advair 500-50 Diskus] 1 EACH Blst.W.De INHALATION SCH (08:00)
== END 2023-05-03 11:37 | disposition home or self-care (01) ==
LOC: CATHCVL 05:48
PROVIDERS: ATTEND Internal Medicine Interventional Cardiology
DX: I25.10 Atherosclerotic heart disease of native coronary artery without angina pectoris (principal); I10 Essential (primary) hypertension; F17.210 Nicotine dependence, cigarettes, uncomplicated; J44.9 Chronic obstructive pulmonary disease, unspecified; E78.2 Mixed hyperlipidemia; Z79.82 Long term (current) use of aspirin; Z79.899 Other long term (current) drug therapy
CPT/HCPCS: 93458; 80048; 85025; C1769 ×2; C1894; J2250; J2001; J3010; J1644; Q9967

== ENCOUNTER → 2024-12-25 | Outpatient (CLI) | payer MEDICARE ==
--- NOTE | 2024-12-25 11:10 | US ---
EXAMINATION TYPE: US pelvic limited DATE OF EXAM: 12/25/2024 COMPARISON: NONE CLINICAL INDICATION: Male, 64 years old with history of N40.1 BENIGN PROSTATIC HYPERPLASIA WITH LOWER URIN; Unable to empty bladder TECHNIQUE: FINDINGS: 8.8 mL post void residual Bladder appears WNL - not fully distended . Initial fill volume was 42 mL. IMPRESSION: 1. No urinary retention evident. [facility], , 12/25/2024 11:08 AM
== END | disposition home or self-care (01) ==
LOC: RADUSWWP 09:39
PROVIDERS: ATTEND Family Medicine
DX: N40.1 Benign prostatic hyperplasia with lower urinary tract symptoms (principal)
CPT/HCPCS: 76857